=== PATIENT | female | born 1980 | race American Indian/Alaskan Native ===

== ENCOUNTER 2018-02-04 01:18 | Emergency (ER) | payer SELFPAY ==
[2018-02-04] MEDS ORDERED: TYLENOL ONE (02:27)
[2018-02-04 02:33] VITALS: BP 142/80
[2018-02-04] MEDS ORDERED: TYLENOL PO ONE (02:34)
--- NOTE | 2018-02-04 03:08 | Emergency Department Report ---
ED ENT HPI - General Chief complaint: Sore Throat Stated complaint: CHILLS, BODYACHES, SORE THROAT Time Seen by Provider: 02/04/18 03:02 Source: patient Mode of arrival: Ambulatory Limitations: No Limitations - History of Present Illness Initial comments: Patient 37-year-old female who presents for sore throat dysphagia or throat pain described as for the pain and burning sharp with swallowing there is no MAXIMUM TEMPERATURE patient denies nausea vomiting has history of recurrent strep throat MD complaint: sore throat Onset/Timin -: days(s) Location: throat Severity: moderate Severity scale (0 -10): 4 Quality: burning, sharp Consistency: intermittent Improves with: none Worsens with: swallowing, eating Associated Symptoms: fever, pain with swallowing, sore throat - Related Data Previous Rx's Medication Instructions Recorded Last Taken Type Amoxicillin/Potassium Clav 1 each PO BID #20 tablet 02/04/18 Unknown Rx [Augmentin 875-125 Tablet] Benzocaine/Menth/Cetylpyrd 1 each MM Q2H PRN #3 packet 02/04/18 Unknown Rx [Cepacol X Strength] Ibuprofen 800 mg PO TID PRN #30 tablet 02/04/18 Unknown Rx Allergies Allergy/AdvReac Type Severity Reaction Status Date / Time No Known Allergies Allergy Unverified 02/04/18 02:29 ED Dental HPI - General Chief complaint: Sore Throat Stated complaint: CHILLS, BODYACHES, SORE THROAT Time Seen by Provider: 02/04/18 03:02 Source: patient Mode of arrival: Ambulatory Limitations: No Limitations - Related Data Previous Rx's Medication Instructions Recorded Last Taken Type Amoxicillin/Potassium Clav 1 each PO BID #20 tablet 02/04/18 Unknown Rx [Augmentin 875-125 Tablet] Benzocaine/Menth/Cetylpyrd 1 each MM Q2H PRN #3 packet 02/04/18 Unknown Rx [Cepacol X Strength] Ibuprofen 800 mg PO TID PRN #30 tablet 02/04/18 Unknown Rx Allergies Allergy/AdvReac Type Severity Reaction Status Date / Time No Known Allergies Allergy Unverified 02/04/18 02:29 ED Review of Systems ROS: Stated complaint: CHILLS, BODYACHES, SORE THROAT Other details as noted in HPI Constitutional: chills, fever Eyes: denies: eye pain, eye discharge, vision change ENT: throat pain Respiratory: denies: cough, shortness of breath, wheezing Cardiovascular: denies: chest pain, palpitations Endocrine: no symptoms reported Gastrointestinal: denies: abdominal pain, nausea, diarrhea Genitourinary: denies: urgency, dysuria, discharge Musculoskeletal: denies: back pain, joint swelling, arthralgia Skin: denies: rash, lesions Neurological: denies: headache, weakness, paresthesias Psychiatric: denies: anxiety, depression Hematological/Lymphatic: denies: easy bleeding, easy bruising ED Past Medical Hx - Past Medical History Previous Medical History?: No - Surgical History Past Surgical History?: No - Social History Smoking Status: Never Smoker Substance Use Type: None - Medications Home Medications: Home Medications Medication Instructions Recorded Confirmed Last Taken Type Amoxicillin/Potassium Clav 1 each PO BID #20 tablet 02/04/18 Unknown Rx [Augmentin 875-125 Tablet] Benzocaine/Menth/Cetylpyrd 1 each MM Q2H PRN #3 packet 02/04/18 Unknown Rx [Cepacol X Strength] Ibuprofen 800 mg PO TID PRN #30 tablet 02/04/18 Unknown Rx ED Physical Exam - General Limitations: No Limitations General appearance: alert, in no apparent distress - Head Head exam: Present: atraumatic, normocephalic - Eye Eye exam: Present: PERRL, EOMI Pupils: Present: normal accommodation - ENT ENT exam: Present: mucous membranes moist - Expanded ENT Exam Expanded Ear exam: Present: normal external inspection Throat exam: Positive: tonsillar erythema, tonsillomegaly, tonsillar exudate. Negative: normal inspection, R peritonsillar mass, L peritonsillar mass - Neck Neck exam: Present: normal inspection - Respiratory Respiratory exam: Present: normal lung sounds bilaterally. Absent: respiratory distress, wheezes, stridor, chest wall tenderness - Cardiovascular Cardiovascular Exam: Present: regular rate, normal rhythm, normal heart sounds. Absent: systolic murmur, diastolic murmur, rubs, gallop - GI/Abdominal GI/Abdominal exam: Present: soft, normal bowel sounds - Rectal Rectal exam: Present: deferred - Extremities Exam Extremities exam: Present: normal inspection - Back Exam Back exam: Present: normal inspection - Neurological Exam Neurological exam: Present: alert, oriented X3, CN II-XII intact, normal gait - Psychiatric Psychiatric exam: Present: normal affect, normal mood - Skin Skin exam: Present: warm, dry, intact, normal color. Absent: rash ED Course Vital Signs 02/04/18 02:29 Temperature 99 F Pulse Rate 82 Respiratory 12 Rate Blood Pressure 142/80 O2 Sat by Pulse 98 Oximetry ED Medical Decision Making - Medical Decision Making This is bacterial pharyngitis plan as this is recurrent we'll treat with Augmentin and ibuprofen and Cepacol lozenges patient will follow up with PCP in 2-3 days patient verbalizes agreement and understanding with this discharge plan patient received home in stable condition at this time Critical care attestation.: If time is entered above; I have spent that time in minutes in the direct care of this critically ill patient, excluding procedure time. ED Disposition Clinical Impression: Pharyngitis Qualifiers: Pharyngitis/tonsillitis etiology: unspecified etiology Qualified Code(s): J02.9 - Acute pharyngitis, unspecified Disposition: DC- TO HOME OR SELFCARE Is pt being admited?: No Does the pt Need Aspirin: No Condition: Good Instructions: Pharyngitis (ED) Prescriptions: Amoxicillin/Potassium Clav [Augmentin 875-125 Tablet] 1 each PO BID #20 tablet Benzocaine/Menth/Cetylpyrd [Cepacol X Strength] 1 each MM Q2H PRN #3 packet PRN Reason: pain Ibuprofen 800 mg PO TID PRN #30 tablet PRN Reason: pain fever Forms: Work/School Release Form(ED) Time of Disposition: 03:09 Print Language: MARSHALLESE
== END 2018-02-04 03:16 | disposition home or self-care (01) ==
LOC: ED 01:18
DX: J02.9 Acute pharyngitis, unspecified (principal)
CPT/HCPCS: 99282